=== PATIENT | female | born 1975 | race Hispanic/Latino ===

== ENCOUNTER → 2017-02-08 17:00 | Emergency (ER) | payer SELFPAY ==
[~2017-02-08 17:00] MED LIST: BABY ASPIRIN ONE
== END | disposition left against medical advice (07) ==
LOC: ED 17:00
DX: Z53.21 Procedure and treatment not carried out due to patient leaving prior to being seen by health care provider (principal)

== ENCOUNTER 2020-10-26 15:39 | Emergency (ER) | payer SELFPAY ==
[2020-10-26 16:50] VITALS: BP 131/89
[2020-10-26] MEDS ORDERED: HYDROcodone/ACETAMINOPHEN 10-325MG TAB PO ONE (16:56)
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
--- NOTE | 2020-10-26 17:41 | XRay Report ---
Cervical spine 5 views INDICATION: Neck pain following injury IMPRESSION: No acute fracture or subluxation is identified. Signer Name: Pascual Maldonado MD Signed: 10/26/2020 5:37 PM Workstation Name: [id number]
== END 2020-10-26 18:35 | disposition home or self-care (01) ==
LOC: ED 15:39
DX: S13.4XXA Sprain of ligaments of cervical spine, initial encounter (principal); Z79.899 Other long term (current) drug therapy; Z86.73 Personal history of transient ischemic attack (TIA), and cerebral infarction without residual deficits; Z90.49 Acquired absence of other specified parts of digestive tract; Z98.890 Other specified postprocedural states; Z88.0 Allergy status to penicillin; Z91.018 Allergy to other foods; V49.49XA Driver injured in collision with other motor vehicles in traffic accident, initial encounter; Y92.410 Unspecified street and highway as the place of occurrence of the external cause; Y93.89 Activity, other specified; Y99.8 Other external cause status
CPT/HCPCS: 72040